=== PATIENT | female | born 1975 | race Caucasian/White ===

== ENCOUNTER → 2019-08-18 | Outpatient (CLI) | payer OTHER ==
[2019-08-18 09:31] LABS: microscopic required? NO
[2019-08-18 10:10] LABS: BASOPHIL % 0.6 % (0-2); PLATELET COUNT 215 x10^3mcL (130-400); RED CELL DISTRIBUTION WIDTH 12.9 % (11.5-14.5)
[2019-08-18 10:29] LABS: UA SPECIFIC GRAVITY >=1.030 (1.005-1.035); urine erythrocyte NEGATIVE (NEGATIVE)
[2019-08-18 10:51] LABS: ALBUMIN 4.5 g/dL (3.4-5.0); AST/SGOT 40 U/L (15-37); BILIRUBIN TOTAL 0.95 mg/dL (0.20-1.00); CALCIUM 9.3 mg/dL (8.5-10.1); CARBON DIOXIDE 28.9 mmol/L (21-32); CHLORIDE SERUM 104 mmol/L (98-107); CREATININE SERUM 0.6 mg/dL (0.6-1.0); GFR1 > 60 mL/min; GLUCOSE SERUM 95 mg/dL (74-106); POTASSIUM SERUM 3.6 mmol/L (3.5-5.1); SODIUM SERUM 142 mmol/L (136-145); TOTAL PROTEIN, SERUM 8.2 g/dL (6.4-8.2)
[2019-08-18 10:52] LABS: ALKALINE PHOSPHATASE 100 U/L (46-116); ALT/SGPT 67 U/L (14-59); CHOLESTEROL 205 mg/dL (<200); CHOLESTEROL/HDL RATIO 2.1; HDL CHOLESTEROL 100 mg/dL (40-60); TRIGLYCERIDES 55 mg/dL (<150)
== END | disposition home or self-care (01) ==
LOC: MA 08:26
PROC: BH02ZZZ Plain Radiography of Bilateral Breasts (ICD-10-PCS; principal; 2019-08-18)
DX: Z00.00 Encounter for general adult medical examination without abnormal findings (principal); N77.1 Vaginitis, vulvitis and vulvovaginitis in diseases classified elsewhere; N39.0 Urinary tract infection, site not specified; R92.8 Other abnormal and inconclusive findings on diagnostic imaging of breast
CPT/HCPCS: 77066; 87491; 87591

== ENCOUNTER 2019-10-16 12:32 | Emergency (ER) | payer OTHER ==
[~2019-10-16] VITALS: Ht 162.6 cm; Wt 54.0 kg
[2019-10-16 12:51] VITALS: BP 125/86; Ht 162.6 cm; Wt 54.0 kg
== END 2019-10-16 13:14 | disposition home or self-care (01) ==
LOC: ED 12:32
DX: J06.9 Acute upper respiratory infection, unspecified (principal); Z11.8 Encounter for screening for other infectious and parasitic diseases; Z88.1 Allergy status to other antibiotic agents

== ENCOUNTER 2020-04-19 14:19 | Emergency (ER) | payer OTHER ==
[~2020-04-19] VITALS: Ht 162.6 cm; Wt 54.0 kg
[2020-04-19 15:08] VITALS: Ht 162.6 cm; Wt 54.0 kg
[2020-04-19 16:39] VITALS: BP 101/74
== END 2020-04-19 16:39 | disposition home or self-care (01) ==
LOC: ED 14:19
DX: S92.511A Displaced fracture of proximal phalanx of right lesser toe(s), initial encounter for closed fracture (principal); Z88.0 Allergy status to penicillin; W22.8XXA Striking against or struck by other objects, initial encounter; Y93.89 Activity, other specified; Y92.89 Other specified places as the place of occurrence of the external cause; Y99.8 Other external cause status